=== PATIENT | female | born 1995 | race Caucasian/White ===

== ENCOUNTER 2018-08-09 17:12 | Emergency (ER) | payer BC ==
[2018-08-09 17:18] VITALS: BP 133/70; PULSE 88; TEMP 98.4; BMI 22.8
--- NOTE | 2018-08-09 17:18 | PDOC ---
Rapid Medical Evaluation Time Seen by Provider: 08/09/18 17:14 Medical Evaluation: 08/09/18 17:15 Pt presents to the ED for subjective fever, chills, cough and chest pain for one week. Pt states her symptoms started yesterday. Admits to feeling weak. She has been taking alkaseltzer plus with little relief Exam: Nasal congestion, Lungs CTAB Orders: upreg Pt to proceed to ED for further evaluation Discharge Disposition - Diagnosis Congestion of nasal sinus - Referrals - Patient Instructions - Post Discharge Activity
[2018-08-09] MEDS ORDERED: ALBUTEROL SO4 2.5/IPRATROPIUM 0.5 INH SOL 3 ML VIAL.NEB. NEB ONE ×2 (18:51→18:53)
--- NOTE | 2018-08-09 19:12 | PDOC ---
History of Present Illness - General Chief Complaint: Cold Symptoms Stated Complaint: COLD SYMPTOMS Time Seen by Provider: 08/09/18 17:14 History Source: Patient Exam Limitations: No Limitations - History of Present Illness Timing/Duration: reports: getting worse Past History - Travel Traveled outside of the country in the last 30 days: No - Past Medical History Allergies/Adverse Reactions: Allergies Allergy/AdvReac Type Severity Reaction Status Date / Time No Known Allergies Allergy Verified 08/09/18 18:57 Home Medications: Ambulatory Orders Albuterol Sulfate Inhaler - [Ventolin HFA Inhaler -] 1 - 2 inh PO Q4H #1 inhaler 08/09/18 COPD: No - Immunization History Immunization Up to Date: Yes - Suicide/Smoking/Psychosocial Hx Smoking History: Never smoked Information on smoking cessation initiated: No Hx Alcohol Use: No Drug/Substance Use Hx: No Substance Use Type: None Review of Systems - Review of Systems Able to Perform ROS?: Yes Is the patient limited [place] proficient: Yes Constitutional: Yes: Symptoms Reported, See HPI, Malaise HEENTM: No: Symptoms Reported Respiratory: Yes: Symptoms reported, See HPI, Cough, Wheezing ABD/GI: No: Symptoms Reported Musculoskeletal: Yes: Symptoms Reported Integumentary: Yes: Symptoms Reported, See HPI Neurological: Yes: Symptoms reported, See HPI, Headache (frontal ) All Other Systems: Reviewed and Negative *Physical Exam - Vital Signs Last Vital Signs Temp Pulse Resp BP Pulse Ox 98.4 F 88 22 H 133/70 100 08/09/18 17:15 08/09/18 17:15 08/09/18 17:15 08/09/18 17:15 08/09/18 17:15 - Physical Exam General Appearance: Yes: Nourished, Appropriately Dressed, Apparent Distress, Mild Distress HEENT: positive: [place], TMs Normal (congested but landmarks easily visualized), Pharynx Normal, Nasal Congestion, Rhinorrhea. negative: Normal ENT Inspection Neck: positive: Supple, Lymphadenopathy (R). negative: Tender Respiratory/Chest: positive: Wheezing. negative: Lungs Clear (course with deep inspiration), Normal Breath Sounds Cardiovascular: positive: Regular Rhythm Gastrointestinal/Abdominal: positive: Normal Bowel Sounds, Soft. negative: Tender Extremity: positive: Normal Capillary Refill, Normal Inspection Integumentary: positive: Dry, Pale Neurologic: positive: storage battery charger II-XII NML intact, Fully Oriented, Alert, Normal Mood/ Affect, Normal Response, Motor Strength 02/02 ED Treatment Course - ADDITIONAL ORDERS Additional order review: Laboratory Results 08/09/18 18:30 Urine HCG, Qual Positive Progress Note - Progress Note Progress Note: Urine positive, related to patient was surprised by this information. Will follow-up with her private physician and understands need to follow-up with PMD *DC/Admit/Observation/Transfer Diagnosis at time of Disposition: Congestion of nasal sinus URI (upper respiratory infection) Qualifiers: URI type: unspecified viral URI Qualified Code(s): J06.9 - Acute upper respiratory infection, unspecified - Discharge Dispostion Disposition: HOME Condition at time of disposition: Stable - Prescriptions Prescriptions: Albuterol Sulfate Inhaler - [Ventolin HFA Inhaler -] 1 - 2 inh PO Q4H #1 inhaler - Referrals - Patient Instructions Printed Discharge Instructions: DI for Common Cold Additional Instructions: Rest, drink lots of fluids: Teas, water, soups, Pedialyte Saltwater gargles Steamy showers/seem to face break up mucus Avoid contact with others until fevers and cough resolved Lots of handwashing and good hygiene Continue [id number] medications for symptomatic relief Tylenol or Motrin for fever and pain Followup with private physician in one to 2 days as needed Return to emergency department for worsened symptoms, fevers, dehydration - Post Discharge Activity Forms/Work/School Notes: Back to Work
== END 2018-08-09 19:54 | disposition home or self-care (01) ==
LOC: JERFT 17:12
DX: O26.899 Other specified pregnancy related conditions, unspecified trimester (principal); J06.9 Acute upper respiratory infection, unspecified; Z3A.00 Weeks of gestation of pregnancy not specified
CPT/HCPCS: 84703; 99281-25